=== PATIENT | female | born 1955 | race Caucasian/White ===

== ENCOUNTER 2018-05-09 19:41 | Emergency (ER) | payer OTHER ==
[2018-05-09 19:49] VITALS: BP 156/82
--- NOTE | 2018-05-09 20:11 | UC ---
Head Injury HPI - HPI Summary HPI Summary: 63 y/o female presents to the urgent care accompany by c/o hitting her back on her head on the pavement after slipping on the ice around 1800 pm today. Pt reports mild neck pain, specially on the side associated with mild BEY. She has a bump in the posterior back of her head that is painful at touch. Pain is 4/10. She took Advil PO 400mg after it happened. Pt denies LOC or dizziness, after it happened. She had mild nausea, but has resolved by now. Pt denies Visual disturbances, photophobia, SOB, chest pain, abdominal pain, numbness or tingling over the extremities or face, N/V/D. No Hx of neck or head injury in the past. - History Of Current Complaint Chief Complaint: UCHeadInjury Stated Complaint: HEAD INJURY Time Seen by Provider: 05/09/18 19:58 Hx Obtained From: Patient ?: No - menopausal Onset/Duration: Sudden Onset, Lasting Hours - 2 hrs, Still Present Severity Currently: Mild Severity Initially: Mild Pain Intensity: 4 Pain Scale Used: 0-10 Numeric Character: Dull Aggravating Factor(s): Other - headache Associated Signs And Symptoms: Positive: Neck Pain. Negative: LOC (Time In Secs./Mins/Hrs), LOC Duration Unknown, Confusion, Memory Loss, Seizure, Epistaxis, Dental Malocclusion, Nausea, Vomiting - Risk Factors SDH Risk Factor: Negative - Allergies/Home Medications Allergies/Adverse Reactions: Allergies Allergy/AdvReac Type Severity Reaction Status Date / Time No Known Allergies Allergy Verified 05/09/18 19:49 PMH/Surg Hx/FS Hx/Imm Hx Previously Healthy: Yes Other Cardiovascular History: palpitations - Surgical History Surgical History: Yes Surgery Procedure, Year, and Place: 2 c sections, ovarian cyst surgery - Family History Known Family History: Positive: Cardiac Disease, Hypertension - Social History Occupation: Retired Lives: With Family Alcohol Use: None Substance Use Type: None Smoking Status (MU): Never Smoked Tobacco Review of Systems All Other Systems Reviewed And Are Negative: Yes Constitutional: Positive: Negative Skin: Positive: Other - bump in the posterio scalp s/p falling on the ice Eyes: Positive: Negative ENT: Positive: Negative Respiratory: Positive: Negative Cardiovascular: Positive: Negative Gastrointestinal: Positive: Negative Genitourinary: Positive: Negative Motor: Positive: Negative Neurovascular: Positive: Negative Musculoskeletal: Positive: Decreased ROM - mild neck, Other: - neck pain s/p fall on the ice Neurological: Positive: Headache - mild Psychological: Positive: Negative Is Patient Immunocompromised?: No Physical Exam - Summary Physical Exam Summary: Vital signs: reviewed General: well developed, well nourished obese female sitting in the examining table w/o any respiratory or pain distress; no odor of ETOH. Skin: [place], warm and dry, no surface trauma. HEENT: -Head: atraumatic, no palpable deformities, -Eyes: PERRLA and EOMI, no periorbital ecchymosis. -Ears: TMs clear, no hemotympanum or Battles sign. -Nose/Face: atraumatic, no septal hematoma. Facial bones symmetric, NT to palpation and stable with attempt at manipulation. -Mouth/Throat: no intraoral trauma, Teeth and mandible are intact. Neck: no point tenderness, step-off or deformity to firm palpation of the cervical spine at the midline. Mild paraspinal muscle tenderness on both side of neck. Trachea midline. Carotids equal. No masses. mild decrease ROM without due to pain. Chest: no surface trauma or asymmetry. NT without crepitus or deformity. Normal tidal volume. CTA bilaterally. Heart: RRR, no murmur, rub, or gallop. All peripheral pulses are intact and equal. Abd: nondistended without abrasions or ecchymosis. Bowel sounds are active. NT , guarding or rebound. No masses. Good femoral pulses. Back: no contusions, ecchymosis, or abrasions are noted, NT, without step-off or deformity to firm palpation of the thoracic and lumbar spine. Pelvis: NT to palpation and stable to compression. Extrems: no surface trauma. FROM. Distal motor, neuromuscular supply is intact. Neuro: A&O x4, GCS 15, CN II-XII grossly intact. Motor and sensory exam nonfocal. Reflexes are symmetric. Speech is clear and gait steady. Triage Information Reviewed: Yes Vital Signs: Initial Vital Signs Temp 97 F 05/09/18 19:45 Pulse 70 05/09/18 19:45 Resp 16 05/09/18 19:45 BP 156/82 05/09/18 19:45 Pulse Ox 100 02/27/19 19:45 Head Injury Course/Dx - Course Course Of Treatment: 63 y/o female presents to the urgent care accompany by c/o hitting her back on her head on the pavement after slipping on the ice around 1800 pm today. Pt reports mild neck pain, specially on the side associated with mild BEY. She has a bump in the posterior back of her head that is painful at touch. Pain is 4/10. She took Advil PO 400mg after it happened. Pt denies LOC or dizziness, after it happened. She had mild nausea, but has resolved by now. Pt denies Visual disturbances, photophobia, SOB, chest pain, abdominal pain, numbness or tingling over the extremities or face, N/V/D. No Hx of neck or head injury in the past. Hx obtained. PE: WNL,A&O x4, GCS 15, CN II- XII grossly intact. Motor and sensory exam nonfocal. Reflexes are symmetric. Speech is clear and gait steady. no AMS or hematoma observed on exam. Neurologic exam is WNL. According to CCHR criteria there is not recommendation for brain CT. However husbanc and pt resuwest CT. Brain CT and cervical CT w/o contrast ordered, Impression: 1. No traumatic intracranial abnormalities. 2. Mild chronic small vessel ischemic disease. Cervical CT impression: 1. No cervical spine traumatic abnormalities. 2. Moderate multilevel cervical spondylopathy causing multilevel canal stenosis and possible compression of the right C4, right C5, and right C6 nerve roots as per radiologist. Pt give at the clinic a soft cervical collar for comfort. Pt given a flexeril PO dispense home to take tonight to [id number] symptoms and advised continue taking Ibuprofen PO. Also advised close observation and brain rest as directed below. She was Also Rx medrol dose dwight and Flexeril PO as directed below to alleviate symptoms of cervical DDD and was advised to f/u w/ PCP mild BEY, persist for further evaluation and treatment. Pt given referral with [facility] Spinal Navigator if she starts to neck symptoms do not improve. D/C instructions explained. Pt understood and agreed w/ plan of care. Pt left clinic hemodynamically stable, ambulating and A&OX4 - Differential Dx/Diagnosis Differential Diagnosis/HQI/PQRI: Cerebral Contusion, Cervical Sprain, Concussion Without LOC, Contusion, Hematoma, Intracranial Bleed Provider Diagnosis: Contusion of scalp, Degenerative disc disease, cervical, Elevated BP without diagnosis of hypertension Discharge - Sign-Out/Discharge Documenting (check all that apply): Patient Departure - D/c home All imaging exams completed and their final reports reviewed: Yes - Discharge Plan Condition: Stable Disposition: HOME Prescriptions: Cyclobenzaprine TAB* [Flexeril 10 MG TAB*] 10 mg PO TID PRN #21 tab PRN Reason: Spasms - Neck Ibuprofen TAB* [Motrin TAB* 600 MG] 600 mg PO Q6H PRN #30 tab PRN Reason: Pain methylPREDNISolone [Medrol Dosepak 4 MG*] 4 mg PO .SEE DWIGHT INSTRUCTION #1 dwight Patient Education Materials: Scalp Contusion in Adults (ED), Degenerative Disc Disease (ED) Referrals: Freddy Gonzalez MD [Primary Care Provider] - 3 Days Arely Avitia Ae, RN [Registered Nurse] - If Needed Additional Instructions: 1-Please take ibuprofen PO q6-8hrs prn as instructed after meals to alleviate pain and swelling. Increase fluid intake, eat well, rest and avoid strenuous exercise. 2- Use the Soft collar for comfort until symptoms resolve. Take Medrol dose dwight and Flexeril to alleviate your symptoms of neck spasm and degenerative cervical disc disease. Please do not drive if Flexeril is causing drowsiness. 3-If symptoms worsen and you develop vomiting w/ severe BEY, visal changes please go immediately to the ER for further management 4- Rest your brain, avoid watching videos or movies or work in the computer for long period or time. If BEY continue to be mild please f/u w/ your PCP for further management 5-If cervical symptoms continues please call Spinal Nurse Navigator: Shelly Avitia: [phone] for further management of your Degenerative disc disease and herniated discs. 6- Your BP is elevated today. please decrease salt in your diet, monitor BP and if it continues to be elevated please f/u with your PCP for further management. - Billing Disposition and Condition Condition: STABLE Disposition: Home - Attestation Statements Provider Attestation: I was available for consult. This patient was seen by the JULI. The patient was not presented to, seen by, or examined by me. -Brandi
[2018-05-09] MEDS ORDERED: Cyclobenzaprine TAB* 10 MG PO ONE (21:44)
== END 2018-05-09 22:14 | disposition home or self-care (01) ==
LOC: UCEAST 19:41
DX: S00.03XA Contusion of scalp, initial encounter (principal); M50.30 Other cervical disc degeneration, unspecified cervical region; R03.0 Elevated blood-pressure reading, without diagnosis of hypertension; W00.0XXA Fall on same level due to ice and snow, initial encounter; Y92.9 Unspecified place or not applicable
CPT/HCPCS: 70450; 72125; 99213; A9270-GY; G0463